=== PATIENT | male | born 1960 | race Asian ===

== ENCOUNTER 2019-11-16 19:04 | Emergency (ER) | payer OTHER, MEDICAID, SELFPAY ==
[2019-11-16 19:10] VITALS: PULSE 67; RESP 18; TEMP 36.9; O2SAT 96; BMI 23.6
[2019-11-16 19:14] VITALS: BP 161/99; PULSE 67; RESP 18; BMI 23.6
[2019-11-16] MEDS: TET,DIPH,PERTUSS(ACELL),VAC/PF 0.5 ML SYRINGE IM (21:35)
--- NOTE | 2019-11-16 21:37 | ED.WOUNDLAC ---
HPI - Wound/Laceration <HARMONY Munoz - Last Filed: 11/16/19 22:30> General Chief Complaint: Wound/Laceration Stated Complaint: left middle finger cut Time Seen by Provider: 11/16/19 20:48 Source: patient Mode of arrival: Ambulatory Limitations: no limitations History of Present Illness HPI narrative: This is a 59-year-old male, former smoker, who takes baby aspirin daily presents to ED with avulsion injury to left long finger pad when he was cutting a carrot with clean knief during early evening. Patient reports he came to ER since he could not control bleeding. Patient right dominant hand and is not sure when he had last tetanus immunization. Patient reports intact sensation and is able to move all fingers in left hand. Related Data Home Medications Medication Instructions Recorded Confirmed amlodipine [Norvasc] 10 mg PO QDAY #0 06/29/16 aspirin 81 mg PO QDAY #0 06/29/16 atorvastatin [Lipitor] 80 mg PO QDAY #0 06/29/16 benzonatate #0 06/29/16 carvedilol [Coreg] 3.125 mg PO #0 06/29/16 carvedilol [Coreg] 3.125 mg PO BID #0 06/29/16 chlorthalidone 25 mg PO QDAY #0 06/29/16 ipratropium bromide [Atrovent HFA] #0 06/29/16 thiamine HCl (vitamin B1) [Vitamin 100 mg PO #0 06/29/16 B-1] Allergies Allergy/AdvReac Type Severity Reaction Status Date / Time No Known Allergies Allergy Uncoded 07/17/17 12:42 Review of Systems <HARMONY Munoz - Last Filed: 11/16/19 22:30> Review of Systems Narrative: General: Denies fever, chills, fatigue, malaise, sweats. Respiratory: Denies dyspnea, cough, wheezing, hemoptysis, sputum. Cardiovascular: Denies chest pain, palpitations, orthopnea, edema. Gastrointestinal: Denies nausea, vomiting, abdominal pain, diarrhea, constipation, melena. : Denies dysuria, frequency, incontinence, hematuria, urinary retention. Musculoskeletal: Denies weakness, joint pain or bony pain. Skin: See HPI Patient History <HARMONY Munoz - Last Filed: 11/16/19 22:30> Medical History Hyperlipidemia (Acute) Hypertension (Acute) Social History Smoking Status: Former smoker Smoking Status: Former smoker alcohol intake frequency: 0-2 drinks per day Alcohol type: beer Exam <HARMONY Munoz - Last Filed: 11/16/19 22:30> Narrative Exam Narrative: General appearance: well developed, well nourished, in no acute distress. Head: normocephalic, atraumatic, no scalp lesions, non-tender. ENT: Hearing grossly intact. Nose without bleeding, purulent discharge. Airway patent. Neck/Thyroid: neck supple, full range of motion, no visible masses or meningeal signs. No JVD, non-tender without lymphadenopathy. Skin: small avulsion injury to left long finger pad with active bleeding when pressure dressing removed. Heart: no clubbing, no cyanosis, no edema. S1 and S2 normal. RRR w/o murmurs, clicks, or bruits. Lungs: Breathing even and unlabored. No stridor. No accessory muscles used. Able to speak in full sentences. Chest: normal shape and expansion. Abdomen: non-obese, non-distended. Neurologic: alert and oriented. Cognitive exam, TONGUE STITCHER and PNS grossly intact on informal exam. Psych: good eye contact, normal affect. Initial Vital Signs Initial Vital Signs: Vital Signs Temperature 98.4 F 11/16/19 19:10 Pulse Rate 67 11/16/19 19:10 Respiratory Rate 18 11/16/19 19:10 Pulse Oximetry 96 11/16/19 19:10 Extrem Left upper extremity: hand Details: normal capillary refill, neuromotor exam normal, neurosensory exam normal, tendon exam normal, normal ROM of fingers and other (small avulson injury to left long finger pad) <Artie Shaw DO - Last Filed: 11/18/19 02:10> Initial Vital Signs Initial Vital Signs: Vital Signs Temperature 98.4 F 11/16/19 19:10 Pulse Rate 67 11/16/19 19:10 Respiratory Rate 18 11/16/19 19:10 Pulse Oximetry 96 11/16/19 19:10 Scores <Cuate SawyerOkMIRNAP - Last Filed: 11/16/19 22:30> GCS [place] coma scale eye opening: Spontaneous [place] coma scale verbal response: Orientated [place] coma scale motor response: Obey commands [place] coma scale total score: 15 Course <Cuate CoreyMIRNAP - Last Filed: 11/16/19 22:30> Orders Ordered: Discontinued Medications Diphtheria/Tetanus/Acell Pertussis (Adacel) 0.5 ml IM .ONCE ONE Stop: 11/16/19 21:33 Last Admin: 11/16/19 21:35 Dose: 0.5 ml Documented by: HECTOR Vital Signs Vital signs: Vital Signs - 8 hr 11/16/19 19:10 11/16/19 19:14 Temperature 98.4 F Pulse Rate 67 67 Respiratory Rate 18 18 Blood Pressure 161/99 H Pulse Oximetry 96 <Artie Shaw DO - Last Filed: 11/18/19 02:10> Orders Ordered: Discontinued Medications Diphtheria/Tetanus/Acell Pertussis (Adacel) 0.5 ml IM .ONCE ONE Stop: 11/16/19 21:33 Last Admin: 11/16/19 21:35 Dose: 0.5 ml Documented by: HECTOR Vital Signs Vital signs: Vital Signs - 8 hr 11/16/19 19:10 11/16/19 19:14 Temperature 98.4 F Pulse Rate 67 67 Respiratory Rate 18 18 Blood Pressure 161/99 H Pulse Oximetry 96 [facility] - Wound/Laceration <[facility] - Last Filed: 11/16/19 22:30> Differential Diagnosis Differential diagnosis: Likely other (avulsion injury) Medical Records Attestation: I reviewed the patient's medical records. [facility] Narrative Medical decision making narrative: This is a 59-year-old gentleman who came in to ED with small avulsion injury to left non dominant hand long finger pad from a clean knife. Tetanus immunization has been updated today. Attempted to stop bleeding by using Surgicel initially without efficacy. Surgery foam dressing has been reinforced with good bleeding control. Protective dressing has been applied on affected finger and patient advised to watch for signs and symptoms for infection. Return precautions were discussed with patient and patient verbalized understanding and agreement with the treatment plan. Discharge Plan Departure Patient Disposition: Home Clinical Impression: Avulsion of finger Qualifiers: Encounter type: initial encounter Qualified Code(s): S61.209A - Unspecified open wound of unspecified finger without damage to nail, initial encounter Discharge Date/Time: 11/16/19 22:30 Instructions: DI for Avulsion Laceration (Not Requiring Sutures) Activity Restrictions/Additional Instructions: You have been diagnosed with [left long finger pad of origin injury and bleeding has controlled using Surgicel and surgeon foam dressing. ]. What to do: *Take your medications as directed. You can take OTC Tyelnol as needed for pain. *Follow up with your primary care provider in 2-3 days, call for an appointment for wound recheck. Let them know you were seen in the ED and that we asked you to be seen in follow up. *Return to ED if you have any new, worsening, or concerning symptoms, such as [signs and symptoms for infection such as increasing redness/warmth/pain/fever or purulent discharge, chest pain, breathing difficulty, unable to tolerate fluids or any acute concerns]. Prescriptions: No Action thiamine HCl (vitamin B1) [Vitamin B-1] 50 MG tablet 100 mg PO Qty: 0 RF: 0 amlodipine [Norvasc] 5 MG tablet 10 mg PO QDAY Qty: 0 RF: 0 aspirin 81 MG tablet,delayed release (DR/EC) 81 mg PO QDAY Qty: 0 RF: 0 atorvastatin [Lipitor] 80 MG tablet 80 mg PO QDAY Qty: 0 RF: 0 carvedilol [Coreg] 3.125 MG tablet 3.125 mg PO Qty: 0 RF: 0 carvedilol [Coreg] 3.125 MG tablet 3.125 mg PO BID Qty: 0 RF: 0 benzonatate 100 MG capsule Qty: 0 RF: 0 chlorthalidone 25 MG tablet 25 mg PO QDAY Qty: 0 RF: 0 ipratropium bromide [Atrovent HFA] 17 mcg/actuation HFA aerosol inhaler Qty: 0 RF: 0 Referrals: Rivera Joseph [Non-Staff] - <Artie Shaw DO - Last Filed: 11/18/19 02:10> [facility] ED Attending Damiature Attestation: I was immediately available in the department for consultation. This documentation has been reviewed and I agree with assessment and plan. Supervised by Artie Shaw DO
== END 2019-11-16 22:30 | disposition home or self-care (01) ==
PROVIDERS: Emergency Provider Nurse Practitioner Family
DX: S61.209A Unspecified open wound of unspecified finger without damage to nail, initial encounter (principal); W26.0XXA Contact with knife, initial encounter; Z23 Encounter for immunization
CPT/HCPCS: 90471; 99283; 90715

== ENCOUNTER 2021-02-18 07:56 | Emergency (ER) | payer OTHER, MEDICAID, SELFPAY ==
[2021-02-18 07:58] VITALS: BP 174/88; PULSE 59; RESP 18; TEMP 36.6; O2SAT 99; BMI 22.2
--- NOTE | 2021-02-18 08:23 | DI.CT.S_ITS ---
PROCEDURE: CT HEAD/BRAIN WO CON INDICATIONS: Dizziness. Recent right ear operation TECHNIQUE: Noncontrast 4.5 mm thick angled axial sections acquired from the foramen magnum to the vertex, with coronal and sagittal reformats. For radiation dose reduction, the following was used: automated exposure control, adjustment of mA and/or kV according to patient size. COMPARISON: [facility], CT, HEAD WITHOUT CONTRAST, 07/20/2016, 18:42. FINDINGS: Image quality: Excellent. CSF spaces: Basal cisterns are patent. No extra-axial fluid collections. The ventricles are symmetric in size and shape. Brain: No intracranial bleeds or masses. There is cerebral volume loss for age, with resultant ventricular and sulcal prominence. There are periventricular and deep white matter chronic small vessel ischemic changes. There is intracranial internal carotid artery atherosclerosis. Skull and face: Calvarium and visualized facial bones appear intact, without suspicious lesions. Sinuses: Visualized sinuses and mastoids are clear. IMPRESSION: Mild atrophy and white matter chronic ischemic change without intracranial hemorrhage or mass effect. Approved by: Donal Tom M.D. on 02/18/2021 at 8:04
--- NOTE | 2021-02-18 08:36 | ED_ITS ---
HPI - Dizziness General Chief Complaint: Dizziness Stated Complaint: dizzy, stomach hurts Time Seen by Provider: 02/18/21 08:13 Source: patient Mode of arrival: Ambulatory Limitations: no limitations History of Present Illness HPI Narrative: The patient awoke this morning with dizziness. He has mild nausea, no emesis. He denies visual changes. He has no changes in speech, no confusion. He has no focal numbness or weakness. He denies recent illness. He does have a history of CHF. He is compliant with medications. He has no chest pain, dyspnea, or palpitations. He denies near-syncope sensations. The di zziness has improved. He recently had a surgical procedure in his right ear canal. He has no ear pain. He has no discharge from his ears. He denies chronic ear problems, he has no prior history of dizziness. Related Data Home Medications Medication Instructions Recorded Confirmed amlodipine 5 mg tablet (Norvasc) 10 mg PO QDAY #0 06/29/16 aspirin 81 mg tablet,delayed 81 mg PO QDAY #0 06/29/16 release atorvastatin 80 mg tablet (Lipitor) 80 mg PO QDAY #0 06/29/16 benzonatate 100 mg capsule #0 06/29/16 carvedilol 3.125 mg tablet (Coreg) 3.125 mg PO #0 06/29/16 carvedilol 3.125 mg tablet (Coreg) 3.125 mg PO BID #0 06/29/16 chlorthalidone 25 mg tablet 25 mg PO QDAY #0 06/29/16 ipratropium bromide 17 #0 06/29/16 mcg/actuation HFA aerosol inhaler (Atrovent HFA) thiamine HCl (vitamin B1) 50 mg 100 mg PO #0 06/29/16 tablet (Vitamin B-1) Previous Rx's Medication Instructions Recorded meclizine 25 mg tablet 25 mg PO TID-QID PRN #30 tab 02/18/21 Allergies Allergy/AdvReac Type Severity Reaction Status Date / Time No Known Allergies Allergy Uncoded 07/17/17 12:42 Review of Systems Constitutional Constitutional: Denies anorexia, Denies body ache(s), Denies chills, Denies fatigue, Denies fever(s), Denies headache(s) and Denies weakness Eyes Eyes: Denies change in vision and Denies loss of vision ENT Ears, Nose, Mouth, and Throat: Denies otalgia, Denies facial pain, Denies headache(s), Denies mouth pain, Denies neck pain, Denies disequilibrium and Denies sore throat Cardiovascular Cardiovascular: Denies chest pain, Denies syncope, Denies rapid heart rate, Denies edema and Denies dyspnea Respiratory Respiratory: Denies cough and Denies dyspnea Gastrointestinal Gastrointestinal: Denies change in bowel habits, Denies constipation, Denies diarrhea, Denies nausea and Denies vomiting Genitourinary Comments: No urinary symptoms Musculoskeletal Musculoskeletal: Denies arthralgias, Denies back pain, Denies neck pain and Denies numbness Integumentary/Breasts Skin/Breast: Denies lesions and Denies rash Neurologic Neurologic: Denies syncope, Denies headache(s), Denies localized weakness, Denies loss of vision, Denies memory loss, Denies numbness, Denies disequilibrium and Denies weakness Psychiatric Psychiatric: Denies memory loss Endocrine Endocrine: Denies fatigue Patient History Medical History Hyperlipidemia Hypertension Social History Smoking Status: Former smoker Smoking Status: Former smoker alcohol intake frequency: 0-2 drinks per day Alcohol type: beer Substance Use Type: does not use Exam Initial Vital Signs Initial Vital Signs: Vital Signs Temperature 97.8 F 02/18/21 07:58 Pulse Rate 59 L 02/18/21 07:58 Respiratory Rate 18 02/18/21 07:58 Blood Pressure 174/88 H 02/18/21 07:58 Pulse Oximetry 99 02/18/21 07:58 Const General: cooperative, healthy appearing, comfortable, well developed and well groomed [facility] Head: normocephalic, atraumatic, No scalp lesion and No scalp tenderness Ears: TM's normal bilaterally and EAC abnormal (Purple material in the right ear canal due to recent surgery) Nose: nares normal Face and sinus: normal facial exam Mouth: oral mucosae normal Throat: posterior oropharynx normal Eyes Sclera: sclerae normal Cornea: corneas normal Pupils: PERRL EOM: EOM intact bilaterally Direct ophthalmoscopy: normal light reflex Neck Neck: full ROM and No tender Resp Effort & Inspection: normal respiratory effort Auscultation: clear to auscultation bilaterally Cardio Rate: regular rate Rhythm: regular rhythm Heart Sounds: S1 normal, S2 normal and no murmurs GI Inspection: normal to inspection Palpation: soft, No mass and No tender Auscultation: normal bowel sounds Back/Spine/Pelvis Back: normal to inspection Skin General: no rashes or lesions noted Neuro General: patient alert, patient awake, patient oriented x3, no focal motor deficits and Polo Hallpike (Negative testing bilaterally) Extrem General: normal to inspection, full ROM, no pedal edema and no calf tenderness Psych Mental Status: mental status grossly normal Course Course Course Narrative: Symptoms had almost resolved prior to evaluation, symptoms have resolved after receiving meclizine. EKG motor is normal. Vitals are normal. His exam is normal. Head CT revealed microvascular changes, no concerns relating to his recent ear surgery. He is advised to take baby aspirin. Orders Ordered: ED Orders 02/18/21 08:08 Ammonia (NH3) Stat Complete Blood Count AUTO DIFF Stat Comprehensive Metabolic Panel Stat EKG-12 Lead Stat 02/18/21 08:23 CT head/brain wo con Stat Discontinued Medications Meclizine HCl (Meclizine Hcl 12.5 Mg Tablet) 50 mg PO NOW ONE Stop: 02/18/21 08:24 Last Admin: 02/18/21 08:39 Dose: 50 mg Documented by: SOPHIE Vital Signs Vital signs: Vital Signs - 8 hr 02/18/21 07:58 Temperature 97.8 F Pulse Rate 59 L Respiratory Rate 18 Blood Pressure 174/88 H Pulse Oximetry 99 MDM - Dizziness Imaging Data CT scan - head: Radiologist's Impression: [place] [address] CT Scan Report Signed Patient: Taye Ballard MR#: [id number] : 1960 Acct:[id number] Age/Sex: 60 / M Date of Service: 02/18/21 Loc: ED Accession Number: [id number] ?? Procedure: CT head/brain wo con Ordering Provider: Lionel Meeks MD PROCEDURE:? CT HEAD/BRAIN WO CON ? INDICATIONS:? Dizziness. Recent right ear operation ? TECHNIQUE:? Noncontrast 4.5 mm thick angled axial sections acquired from the foramen magnum to the vertex, with coronal and sagittal reformats.? For radiation dose reduction, the following was used:? automated exposure control, adjustment of mA and/or kV according to patient size.? ? COMPARISON:? [facility], CT, HEAD WITHOUT CONTRAST, 07/20/2016, 18:42. ? FINDINGS:? Image quality:? Excellent.? ? CSF spaces:? Basal cisterns are patent.? No extra-axial fluid collections.? The ventricles are symmetric in size and shape.? ? Brain:? No intracranial bleeds or masses.? There is cerebral volume loss for a ge, with resultant ventricular and sulcal prominence.? There are periventricular and deep white matter chronic small vessel ischemic changes.? There is intracranial internal carotid artery atherosclerosis.? ? Skull and face:? Calvarium and visualized facial bones appear intact, without suspicious lesions.? ? Sinuses:? Visualized sinuses and mastoids are clear.? ? IMPRESSION:? ? Mild atrophy and white matter chronic ischemic change without intracranial hemorrhage or mass effect. ? ? ? Approved by: Donal Tom M.D. on 02/18/2021 at 8:04? ECG Data Attestation: I personally reviewed and interpreted this ECG as follows: (Sinus bradycardia rate 55 beats per minute. Normal intervals. No ectopy. No acute ST T wave changes.) Discharge Plan Departure Patient Disposition: Home Clinical Impression: Dizziness, Cerebral microvascular disease Instructions: DI for Dizziness-Nonvertigo Activity Restrictions/Additional Instructions: Baby aspirin 1 daily. Meclizine every 6 hours as needed for dizziness. The prescription has been forwarded to [facility] in [place]. If symptoms persist talk to your about physical therapy consultation. Return here as needed. Prescriptions: New meclizine 25 mg tablet 25 mg PO TID-QID PRN (Reason: dizziness) Qty: 30 RF: 0 No Action thiamine HCl (vitamin B1) [Vitamin B-1] 50 MG tablet 100 mg PO Qty: 0 RF: 0 amlodipine [Norvasc] 5 MG tablet 10 mg PO QDAY Qty: 0 RF: 0 aspirin 81 MG tablet,delayed release (DR/EC) 81 mg PO QDAY Qty: 0 RF: 0 atorvastatin [Lipitor] 80 MG tablet 80 mg PO QDAY Qty: 0 RF: 0 carvedilol [Coreg] 3.125 MG tablet 3.125 mg PO Qty: 0 RF: 0 carvedilol [Coreg] 3.125 MG tablet 3.125 mg PO BID Qty: 0 RF: 0 benzonatate 100 MG capsule Qty: 0 RF: 0 chlorthalidone 25 MG tablet 25 mg PO QDAY Qty: 0 RF: 0 ipratropium bromide [Atrovent HFA] 17 mcg/actuation HFA aerosol inhaler Qty: 0 RF: 0 Referrals: Cora Schrader MD [Primary Care Provider] -
[2021-02-18] MEDS: MECLIZINE HCL 12.5 MG TABLET 50 MG PO (08:39)
[2021-02-18 10:20] VITALS: BP 142/90; PULSE 92; RESP 24; O2SAT 96
== END 2021-02-18 10:21 | disposition home or self-care (01) ==
PROVIDERS: Emergency Provider Emergency Medicine; PCP Family Medicine
DX: G93.89 Other specified disorders of brain (principal); R42 Dizziness and giddiness; R00.1 Bradycardia, unspecified
CPT/HCPCS: 70450; 93005; 93010; 99283; 99284